=== PATIENT | female | born 1980 | race Caucasian/White ===

== ENCOUNTER 2019-11-01 12:40 | Emergency (ER) | payer OTHER ==
[~2019-11-01 12:40] MED LIST: GLYB5TAB8 PO; METF500T PO
== END 2019-11-01 13:20 | disposition home or self-care (01) ==
LOC: EDH 12:40
DX: O20.0 Threatened abortion (principal); O24.111 Pre-existing type 2 diabetes mellitus, in pregnancy, first trimester; E11.9 Type 2 diabetes mellitus without complications; Z79.899 Other long term (current) drug therapy; Z3A.01 Less than 8 weeks gestation of pregnancy
CPT/HCPCS: 99281

== ENCOUNTER 2020-02-11 10:24 | Observation (INO) | payer OTHER ==
[~2020-02-11] VITALS: Ht 162.6 cm; Wt 112.5 kg
[2020-02-11] MEDS ORDERED: LACTATED RINGERS 1000ML 1,000 ML IV PRN (10:45)
[2020-02-11 11:07] VITALS: BP 118/72
[2020-02-12] MEDS ORDERED: PREN1TAB80 PO (16:24)
== END 2020-02-11 14:50 | disposition home or self-care (01) ==
LOC: EDH 10:24 → LDH 10:25
PROVIDERS: ADMIT Specialist; ATTEND Specialist
DX: O26.892 Other specified pregnancy related conditions, second trimester (principal); R10.9 Unspecified abdominal pain; O24.912 Unspecified diabetes mellitus in pregnancy, second trimester; O99.282 Endocrine, nutritional and metabolic diseases complicating pregnancy, second trimester; E28.2 Polycystic ovarian syndrome; O34.32 Maternal care for cervical incompetence, second trimester; Z87.59 Personal history of other complications of pregnancy, childbirth and the puerperium; Z3A.20 20 weeks gestation of pregnancy
CPT/HCPCS: 76805; 82948; 99284; G0378 ×4

== ENCOUNTER 2020-02-12 10:36 | Observation (INO) | payer OTHER ==
[~2020-02-12] VITALS: Ht 152.4 cm; Wt 110.7 kg
[2020-02-12 11:19] LABS: APPEARANCE,URINE SLIGHTLY CLOUDY (CLEAR); BILIRUBIN,URINE Negative (NEGATIVE); COLOR,URINE Yellow (YELLOW); GLUCOSE, URINE (UA) Negative (NEGATIVE); KETONES,URINE Negative (NEGATIVE); LEUKOCYTE ESTERASE ,URINE Large (NEGATIVE); NITRATE,URINE Negative (NEGATIVE); OCCULT BLOOD,URINE Trace (NEGATIVE); PH,URINE 5.5 (5.0-8.0); PROTEIN,URINE Negative (NEGATIVE); UROBILINOGEN,URINE 0.2 mg/dL (0.2-1.0)
[2020-02-12 11:34] LABS: BACTERIA,URINE Moderate /HPF (None Seen); RBC,URINE 0-1 /HPF (0-1)
--- NOTE | 2020-02-12 13:25 | NUR ---
PATIENT ASSESSED AND HEART TONES OBTAINED AND WERE 153 TO RIGHT LOWER QUADRANT. PATIENT DENIES ANY CONTRACTIONS AT THIS TIME. PATIENT HAS NO IV AND WAS ENCOURAGED TO DRINK FLUIDS. DENIES ANY VAGINAL BLEEDING.
[2020-02-12 13:31] VITALS: BP 134/69
[2020-02-12] MEDS ORDERED: PREN1TAB80 PO (16:24)
[2020-02-12] MEDS ORDERED: INSULIN HUMULIN R 100 UNIT/ML 3ML SQ SCH (16:30)
[2020-02-12 16:42] VITALS: BP 122/66
--- NOTE | 2020-02-12 17:00 | NUR ---
DR. GUTHRIE ROUNDED ON PATIENT AND INDICATED PATIENT WOULD PROBABY STAY FOR 1 OR 2 DAYS AND IF STILL PAOLO WOULD PROBABLY START PATIENT ON MAGNESIUM SULFATE.
[2020-02-12 18:28] VITALS: BP 115/54
--- NOTE | 2020-02-12 19:30 | NUR ---
BEDSIDE REPORT GIVEN TO Alma MARTIN RN AND PATIENT CARE TRANSFERED AT THIS TIME.
[2020-02-12 23:15] VITALS: BP 126/68
[2020-02-13 03:25] VITALS: BP 119/64
[2020-02-13 07:19] VITALS: BP 103/51
--- NOTE | 2020-02-13 10:00 | NUR ---
DR. CHAPPELL ROUNDED AND DISCHARGED PT TO HOME. PATIENT INSTRUCTED ON NEED TO GET ONE DOSE OF ROCEPHIN AND WILL GO HOME ON KEFLEX FOR UTI. PT TO FOLLOW UP IN ONE WEEK IN CLINIC.
[2020-02-13 11:10] VITALS: BP 119/63
[2020-02-13] MEDS ORDERED: CEFTRIAXONE SODIUM 500 MG VIAL IM SCH (11:32)
[2020-02-13] MEDS ORDERED: LIDOCAINE HCL 1% 10 ML VIAL MISC SCH (11:45)
--- NOTE | 2020-02-13 12:45 | NUR ---
PATIENT WAS TAKEN VIA W/C TO FAMILY VEHICLE AND DISCHARGED TO HOME. PT IS STABLE AND DENIES ANY CONTRACTIONS AT THIS TIME.
== END 2020-02-13 12:45 | disposition home or self-care (01) ==
LOC: LDH 10:36 → WSH 13:25
PROVIDERS: ADMIT Specialist; ATTEND Specialist
DX: O62.9 Abnormality of forces of labor, unspecified (principal); O34.32 Maternal care for cervical incompetence, second trimester; O26.872 Cervical shortening, second trimester; O23.42 Unspecified infection of urinary tract in pregnancy, second trimester; O99.212 Obesity complicating pregnancy, second trimester; E66.9 Obesity, unspecified; O24.912 Unspecified diabetes mellitus in pregnancy, second trimester; O09.522 Supervision of elderly multigravida, second trimester; Z79.4 Long term (current) use of insulin; Z3A.21 21 weeks gestation of pregnancy; Z68.42 Body mass index [BMI] 45.0-49.9, adult
CPT/HCPCS: 81001; 82948 ×5; 87088; 96372; G0378 ×15; J0696; J3490

== ENCOUNTER 2020-03-06 14:09 | Observation (INO) | payer OTHER ==
[~2020-03-06] VITALS: Ht 152.4 cm; Wt 113.4 kg
[2020-03-06 15:36] LABS: BASOPHILS % (AUTO) 0.3 % (0.0-5.0); EOSINOPHILS % (AUTO) 1.6 % (0.0-8.0); HEMATOCRIT 27.9 % (36-48); LYMPHOCYTES % (AUTO) 24.5 % (21.0-51.0); MEAN CORPUSCULAR HEMOGLOBIN 26.7 pg (27.0-33.0); MEAN CORPUSCULAR HGB CONC 30.8 g/dL (32.0-36.0); MEAN CORPUSCULAR VOLUME 86.6 fL (79-99); MONOCYTES % (AUTO) 4.5 % (3.0-13.0); NEUTROPHILS % (AUTO) 68.4 % (40.0-77.0); PLATELET COUNT (AUTO) 366 K/uL (130-400); RED BLOOD CELL COUNT(AUTO) 3.22 MIL/uL (4.00-5.50); RED CELL DISTRIBUTION WIDTH 14.7 % (11.0-15.5); WHITE BLOOD COUNT (AUTO) 14.1 K/uL (4.8-10.8)
[2020-03-06] MEDS ORDERED: TRANEXAMIC ACID 1,000 MG in 0.9%NACL 100ML 100 ML IV SCH (16:00)
[2020-03-06 16:01] LABS: CREATININE 1.1 mg/dL (0.5-1.5); POTASSIUM 4.2 mmol/L (3.5-5.1)
[2020-03-06 16:07] LABS: BILIRUBIN,TOTAL 0.2 mg/dL (0.2-1.0)
[2020-03-06 16:15] LABS: INR 0.96 (0.85-1.15); PARTIAL THROMBOPLASTIN TIME 26.6 SEC (26.3-35.5); PROTHROMBIN TIME 10.4 SEC (9.6-11.6)
[2020-03-06] MEDS ORDERED: TRANEXAMIC ACID 1000MG/10ML IV SCH (16:30)
[2020-03-06] MEDS ORDERED: LORAZEPAM 0.5 MG TABLET PO SCH (16:30)
[2020-03-06] MEDS: LACTATED RINGERS 1000ML 1,000 ML IV SCH (16:47)
[2020-03-06] MEDS ORDERED: LORAZEPAM 0.5 MG TABLET PO PRN (17:00)
[2020-03-06] MEDS ORDERED: SERT25TA PO (17:35)
[2020-03-06] MEDS ORDERED: DIPH-1138 PO (17:35)
[2020-03-06] MEDS ORDERED: METF-446 PO (17:35)
[2020-03-06 19:03] VITALS: BP 108/64
[2020-03-06 19:45] VITALS: BP_SYST 107; BP_SYST 117; BP_DIAS 69
[2020-03-06 21:06] LABS: APPEARANCE,URINE Clear (CLEAR); BILIRUBIN,URINE Negative (NEGATIVE); COLOR,URINE Yellow (YELLOW); GLUCOSE, URINE (UA) Negative (NEGATIVE); KETONES,URINE Negative (NEGATIVE); LEUKOCYTE ESTERASE ,URINE Negative (NEGATIVE); NITRATE,URINE Negative (NEGATIVE); OCCULT BLOOD,URINE Trace (NEGATIVE); PROTEIN,URINE Negative (NEGATIVE)
[2020-03-06 21:34] LABS: BACTERIA,URINE Few /HPF (None Seen); MUCUS,URINE Moderate LPF (None Seen); SQUAMOUS EPITHELIAL CELL,UR Moderate /HPF (0-2)
[2020-03-06 23:44] VITALS: BP 106/65
[2020-03-07] VITALS (19 sets, daily range): BP systolic 84–110; BP diastolic 39–66
[2020-03-07] MEDS: LACTATED RINGERS 1000ML 1,000 ML IV SCH (03:42)
[2020-03-07 07:02] LABS: HEMATOCRIT 23.5 % (36-48); MEAN CORPUSCULAR HGB CONC 31.1 g/dL (32.0-36.0); RED BLOOD CELL COUNT(AUTO) 2.7 MIL/uL (4.00-5.50); RED CELL DISTRIBUTION WIDTH 14.8 % (11.0-15.5); WHITE BLOOD COUNT (AUTO) 10.7 K/uL (4.8-10.8)
[2020-03-07] MEDS ORDERED: LIDOCAINE PF 100MG/5ML (2%) SYRINGE 5ML ONE (08:53)
[2020-03-07] MEDS ORDERED: PROPOFOL 10 MG/ML 20ML VIAL IV ONE (08:53)
[2020-03-07] MEDS ORDERED: SUCCINYLCHOLINE 200MG/10ML SYR ONE ×2 (08:53→08:59)
[2020-03-07] MEDS ORDERED: DEXAMETHASONE SOD PHOSPHATE 10MG/ML 1ML VIAL ONE (08:53)
[2020-03-07] MEDS ORDERED: ONDANSETRON 4MG INJ ONE (08:53)
[2020-03-07] MEDS ORDERED: MIDAZOLAM HCL 1 MG/ML 2ML VIAL ONE (08:53)
[2020-03-07] MEDS ORDERED: MEPERIDINE-PF 25 MG/ML SYG ONE (08:54)
[2020-03-07] MEDS ORDERED: FENTANYL CITRATE PF 50 MCG/1 ML 2ML VIAL ONE ×2 (08:54→09:43)
[2020-03-07] MEDS ORDERED: CEFAZOLIN SODIUM 1 GM VIAL ONE ×2 (09:27→09:28)
[2020-03-07] MEDS ORDERED: ROCURONIUM 10MG/1ML SYR 10 MG/ML ML ONE (09:29)
[2020-03-07] MEDS ORDERED: OXYTOCIN 10 USP UNITS/ML ONE (09:48)
[2020-03-07] MEDS ORDERED: METHYLERGONOVINE MALEATE 0.2 MG/1 ML ML ONE (09:49)
[2020-03-07] MEDS ORDERED: CALDOLOR 800MG+NS 250ML 250 ML IV ONE (10:12)
[2020-03-07] MEDS ORDERED: CEFAZOLIN SODIUM 1 GM VIAL IVP SCH (10:30)
[2020-03-07] MEDS ORDERED: CALDOLOR 800MG+NS 250ML 250 ML IV SCH (10:30)
== END 2020-03-07 15:25 | disposition home or self-care (01) ==
LOC: EDH 14:09 → EDHIP 14:50 → WSH 16:30 → UNDODISOB 03-07 15:25
PROVIDERS: ADMIT Obstetrics & Gynecology; ATTEND Obstetrics & Gynecology
DX: O72.2 Delayed and secondary postpartum hemorrhage (principal); E11.9 Type 2 diabetes mellitus without complications
CPT/HCPCS: 36415 ×2; 58120; 80053; 81001; 82948 ×2; 85025; 85027; 85610; 85730; 86850; 86900; 86901; 86923; 96361; 96365; 96367; 99284; A4351 ×2; G0378 ×22; J0330 ×2; J0690; J1100; J1741; J2001; J2175; J2210; J2250; J2405; J2590; J2704; J3010 ×2; J3490; J7030; J7120 ×2